=== PATIENT | female | born 1960 | race Caucasian/White ===

== ENCOUNTER 2022-01-04 16:17 | Emergency (ER) | payer OTHER ==
[2022-01-04] MEDS ORDERED: BEBTELOVIMAB (EUA) 175 MG/2 ML VIAL IVPUSH ONE (16:36)
[2022-01-04 16:37] VITALS: BP 139/84; PULSE 88; TEMP 99.2; BMI 28.3
== END 2022-01-04 18:34 | disposition home or self-care (01) ==
LOC: JER 16:17
DX: Z20.822 Contact with and (suspected) exposure to COVID-19 (principal)
CPT/HCPCS: 99283-25; M0222; Q0222